=== PATIENT | female | born 1970 | race Caucasian/White ===

== ENCOUNTER → 2018-02-19 | Outpatient (CLI) | payer BC ==
[2018-02-19 16:53] LABS: Anisocytosis Slight; Hypochromasia Marked; MCH 18.5 pg (25.0-35.0); MCV 71.1 fL (80.0-100.0); Mean Platelet Volume 8.9; Microcytosis Marked; Platelet Count 259 k/uL (150-450); Poikilocytosis Slight; RBC 3.51 m/uL (3.80-5.40); RDW 17.9 % (11.5-15.5); WBC 8.6 k/uL (3.8-10.6)
[2018-02-19 17:35] LABS: HGB 6.5 gm/dL (11.4-16.0)
== END ==
LOC: LABWHC1 16:09
PROVIDERS: ATTEND Obstetrics & Gynecology
DX: D64.9 Anemia, unspecified (principal)
CPT/HCPCS: 36415; 85027

== ENCOUNTER 2018-02-20 14:51 | Emergency (ER) | payer BC ==
[2018-02-20 16:08] LABS: Anisocytosis Slight; Basophils # (A) 0.1 k/uL (0-0.2); Basophils % (A) 1 %; Eosinophils # (A) 0.2 k/uL (0-0.7); Eosinophils % (A) 2 %; HCT 25.9 % (34.0-46.0); Hypochromasia Marked; Lymphocytes # (A) 2.1 k/uL (1.0-4.8); Lymphocytes % (A) 27 %; MCH 18.1 pg (25.0-35.0); MCHC 26.1 g/dL (31.0-37.0); MCV 69.5 fL (80.0-100.0); Microcytosis Marked; Monocytes # (A) 0.4 k/uL (0-1.0); Monocytes % (A) 6 %; Neutrophils # (A) 4.8 k/uL (1.3-7.7); Neutrophils % (A) 62 %; Platelet Count 226 k/uL (150-450); Poikilocytosis Slight; RBC 3.72 m/uL (3.80-5.40); RDW 18.3 % (11.5-15.5); WBC 7.7 k/uL (3.8-10.6)
[2018-02-20 16:12] LABS: HGB 6.8 gm/dL (11.4-16.0)
[2018-02-20 16:17] LABS: ALT 45 U/L (9-52); AST 72 U/L (14-36); Alkaline Phosphatase 86 U/L (38-126); Anion Gap 10 mmol/L; Blood Urea Nitrogen 6 mg/dL (7-17); Carbon Dioxide 21 mmol/L (22-30); Chloride 108 mmol/L (98-107); Glucose 85 mg/dL (74-99); Potassium 4.1 mmol/L (3.5-5.1); Sodium 139 mmol/L (137-145); Total Bilirubin 0.3 mg/dL (0.2-1.3); Total Protein 6.6 g/dL (6.3-8.2)
[2018-02-20 16:24] LABS: Partial Thromboplastin Time 21.9 sec (22.0-30.0); Prothrombin Time 9.5 sec (9.0-12.0)
[2018-02-20 16:27] LABS: Creatine Kinase 48 U/L (30-135)
[2018-02-20 16:40] LABS: Creatine Kinase MB 0.5 ng/mL (0.0-2.4); Troponin I <0.012 ng/mL (0.000-0.034)
--- NOTE | 2018-02-20 16:45 | ED ---
General Adult HPI <Cisco Hitchcock - Last Filed: 02/20/18 18:05> - General Source: patient, RN notes reviewed Mode of arrival: ambulatory Limitations: no limitations <Alvaro Nava - Last Filed: 02/20/18 19:37> - General Chief complaint: Recheck/Abnormal Lab/Rx Stated complaint: needs blood transfusion Time Seen by Provider: 02/20/18 16:24 - History of Present Illness Initial comments: This is a 47-year-old female presents emergency Department chief complaint of low hemoglobin. Patient states she saw her [employer] yesterday because she's been having irregular periods which she's been ongoing and was given prescription for lab work. Patient was found to have a hemoglobin 6.5. Patient states that she does admit that she is very tired and fatigued. She states she can sleep all the time. Patient denies any chest pain, shortness breath headache or dizziness. Patient states that her last mental cycle was over on Sunday. She states this is one of her leg her periods normally she has very large clots and very heavy vaginal bleeding. Patient states that she has no melena rectal bleeding. Patient denies any history of anemia. (Alvaro Nava) - Related Data Home Medications Medication Instructions Recorded Confirmed DULoxetine HCL [Cymbalta] 60 mg PO HS 02/20/18 02/20/18 Fluticasone Nasal [place] [Flonase 2 spr EA NOSTRIL DAILY 02/20/18 02/20/18 Nasal [place]] Multivitamins, Thera [Multivitamin 1 tab PO DAILY 02/20/18 02/20/18 (formulary)] Norgestimate-Ethinyl Estradiol 1 tab PO HS 02/20/18 02/20/18 [Sprintec 28 Day Tablet] Topiramate [Topamax] 100 mg PO HS 02/20/18 02/20/18 clonazePAM [KlonoPIN] 2 mg PO HS 02/20/18 02/20/18 traZODone HCL [Desyrel] 100 mg PO HS 02/20/18 02/20/18 Allergies Allergy/AdvReac Type Severity Reaction Status Date / Time No Known Allergies Allergy Verified 02/20/18 15:13 Review of Systems ROS Other: All systems not noted in ROS Statement are negative. <Cisco Hitchcock - Last Filed: 02/20/18 18:05> ROS Other: All systems not noted in ROS Statement are negative. <Alvaro Nava - Last Filed: 02/20/18 19:37> ROS Statement: Those systems with pertinent positive or pertinent negative responses have been documented in the HPI. Past Medical History Additional Past Medical History / Comment(s): anemia History of Any Multi-Drug Resistant Organisms: None Reported Additional Past Surgical History / Comment(s): Lap band Past Psychological History: Depression Smoking Status: Never smoker Past Alcohol Use History: Occasional Past Drug Use History: None Reported <Alvaro Nava - Last Filed: 02/20/18 19:37> General Exam Limitations: no limitations General appearance: alert, in no apparent distress Head exam: Present: atraumatic, normocephalic, normal inspection Eye exam: Present: normal appearance, PERRL, EOMI, other (inner eyelids are pale ). Absent: scleral icterus, conjunctival injection, periorbital swelling ENT exam: Present: normal oropharynx Neck exam: Present: normal inspection. Absent: tenderness, meningismus, lymphadenopathy Respiratory exam: Present: normal lung sounds bilaterally. Absent: respiratory distress, wheezes, rales, rhonchi, stridor Cardiovascular Exam: Present: regular rate, normal rhythm, normal heart sounds. Absent: systolic murmur, diastolic murmur, rubs, gallop, clicks GI/Abdominal exam: Present: soft, normal bowel sounds. Absent: distended, tenderness, guarding, rebound, rigid Skin exam: Present: warm, dry, intact, normal color. Absent: rash <Alvaro Nava - Last Filed: 02/20/18 19:37> Vital Signs 02/20/18 02/20/18 15:13 19:12 Temperature 98.3 F Pulse Rate 87 85 Respiratory 18 18 Rate Blood Pressure 121/78 128/71 O2 Sat by Pulse 100 100 Oximetry Medical Decision Making - Lab Data Result diagrams: 02/20/18 15:56 02/20/18 15:56 <Cisco Hitchcock - Last Filed: 02/20/18 18:05> - Lab Data Result diagrams: 02/20/18 15:56 02/20/18 15:56 <Alvaro Nava - Last Filed: 02/20/18 19:37> - Medical Decision Making Patient reevaluated by myself, Dr. Hitchcock. Patient resting comfortably in bed. No discomfort with abdominal palpation. Patient states she has stopped her menses several days ago. Case was discussed in detail with Dr. Stewart who does recommend 1 unit of blood, ultrasound and follow-up in the next couple days with Dr. Harper. (Cisco Hitchcock) 47-year-old female presented for anemia. Patient's anemia is related to chronic blood loss from menstrual cycle. She is currently not bleeding at this time. Patient is advised to start [id number]-xuffumo iron supplement she will follow-up with her [employer]. She was given 1 unit of blood in the emergency department and discharge. Patient was updated on ultrasound results which shows large uterine fibroid. (Alvaro Nava) - Lab Data Lab Results 02/20/18 02/20/18 02/20/18 Range/Units 15:56 15:56 15:56 WBC 7.7 (3.8-10.6) k/uL RBC 3.72 L (3.80-5.40) m/uL Hgb 6.8 L* (11.4-16.0) gm/dL Hct 25.9 L (34.0-46.0) % MCV 69.5 L (80.0-100.0) fL MCH 18.1 L (25.0-35.0) pg MCHC 26.1 L (31.0-37.0) g/dL RDW 18.3 H (11.5-15.5) % Plt Count 226 (150-450) k/uL Neutrophils % 62 % Lymphocytes % 27 % Monocytes % 6 % Eosinophils % 2 % Basophils % 1 % Neutrophils # 4.8 (1.3-7.7) k/uL Lymphocytes # 2.1 (1.0-4.8) k/uL Monocytes # 0.4 (0-1.0) k/uL Eosinophils # 0.2 (0-0.7) k/uL Basophils # 0.1 (0-0.2) k/uL Hypochromasia Marked Poikilocytosis Slight Anisocytosis Slight Microcytosis Marked PT (9.0-12.0) sec INR (<1.2) APTT (22.0-30.0) sec Sodium 139 (137-145) mmol/L Potassium 4.1 (3.5-5.1) mmol/L Chloride 108 H (98-107) mmol/L Carbon Dioxide 21 L (22-30) mmol/L Anion Gap 10 mmol/L BUN 6 L (7-17) mg/dL Creatinine 0.60 (0.52-1.04) mg/dL Est GFR (CKD-EPI)AfAm >90 (>60 ml/min/1.73 sqM) Est GFR (CKD-EPI)NonAf >90 (>60 ml/min/1.73 sqM) Glucose 85 (74-99) mg/dL Calcium 9.0 (8.4-10.2) mg/dL Total Bilirubin 0.3 (0.2-1.3) mg/dL AST 72 H (14-36) U/L ALT 45 (9-52) U/L Alkaline Phosphatase 86 (38-126) U/L Total Creatine Kinase 48 (30-135) U/L CK-MB (CK-2) 0.5 (0.0-2.4) ng/mL CK-MB (CK-2) Rel Index 1.0 Troponin I <0.012 (0.000-0.034) ng/mL Total Protein 6.6 (6.3-8.2) g/dL Albumin 4.0 (3.5-5.0) g/dL Urine Color Urine Appearance (Clear) Urine pH (5.0-8.0) Ur Specific [place] (1.001-1.035) Urine Protein (Negative) Urine Glucose (UA) (Negative) Urine Ketones (Negative) Urine Blood (Negative) Urine Nitrite (Negative) Urine Bilirubin (Negative) Urine Urobilinogen (<2.0) mg/dL Ur Leukocyte Esterase (Negative) Urine HCG, Qual (Not Detectd) Blood Type Blood Type Recheck Antibody Screen Crossmatch Spec Expiration Date 02/20/18 02/20/18 02/20/18 Range/Units 15:56 17:11 17:43 WBC (3.8-10.6) k/uL RBC (3.80-5.40) m/uL Hgb (11.4-16.0) gm/dL Hct (34.0-46.0) % MCV (80.0-100.0) fL MCH (25.0-35.0) pg MCHC (31.0-37.0) g/dL RDW (11.5-15.5) % Plt Count (150-450) k/uL Neutrophils % % Lymphocytes % % Monocytes % % Eosinophils % % Basophils % % Neutrophils # (1.3-7.7) k/uL Lymphocytes # (1.0-4.8) k/uL Monocytes # (0-1.0) k/uL Eosinophils # (0-0.7) k/uL Basophils # (0-0.2) k/uL Hypochromasia Poikilocytosis Anisocytosis Microcytosis PT 9.5 (9.0-12.0) sec INR 1.0 (<1.2) APTT 21.9 L (22.0-30.0) sec Sodium (137-145) mmol/L Potassium (3.5-5.1) mmol/L Chloride (98-107) mmol/L Carbon Dioxide (22-30) mmol/L Anion Gap mmol/L BUN (7-17) mg/dL Creatinine (0.52-1.04) mg/dL Est GFR (CKD-EPI)AfAm (>60 ml/min/1.73 sqM) Est GFR (CKD-EPI)NonAf (>60 ml/min/1.73 sqM) Glucose (74-99) mg/dL Calcium (8.4-10.2) mg/dL Total Bilirubin (0.2-1.3) mg/dL AST (14-36) U/L ALT (9-52) U/L Alkaline Phosphatase (38-126) U/L Total Creatine Kinase (30-135) U/L CK-MB (CK-2) (0.0-2.4) ng/mL CK-MB (CK-2) Rel Index Troponin I (0.000-0.034) ng/mL Total Protein (6.3-8.2) g/dL Albumin (3.5-5.0) g/dL Urine Color Urine Appearance (Clear) Urine pH (5.0-8.0) Ur Specific [place] (1.001-1.035) Urine Protein (Negative) Urine Glucose (UA) (Negative) Urine Ketones (Negative) Urine Blood (Negative) Urine Nitrite (Negative) Urine Bilirubin (Negative) Urine Urobilinogen (<2.0) mg/dL Ur Leukocyte Esterase (Negative) Urine HCG, Qual Not Detected (Not Detectd) Blood Type O Positive Blood Type Recheck No Antibody Screen NEGATIVE Crossmatch See Detail Spec Expiration Date 02/23/2018 - 231002/20/18 Range/Units 17:43 WBC (3.8-10.6) k/uL RBC (3.80-5.40) m/uL Hgb (11.4-16.0) gm/dL Hct (34.0-46.0) % MCV (80.0-100.0) fL MCH (25.0-35.0) pg MCHC (31.0-37.0) g/dL RDW (11.5-15.5) % Plt Count (150-450) k/uL Neutrophils % % Lymphocytes % % Monocytes % % Eosinophils % % Basophils % % Neutrophils # (1.3-7.7) k/uL Lymphocytes # (1.0-4.8) k/uL Monocytes # (0-1.0) k/uL Eosinophils # (0-0.7) k/uL Basophils # (0-0.2) k/uL Hypochromasia Poikilocytosis Anisocytosis Microcytosis PT (9.0-12.0) sec INR (<1.2) APTT (22.0-30.0) sec Sodium (137-145) mmol/L Potassium (3.5-5.1) mmol/L Chloride (98-107) mmol/L Carbon Dioxide (22-30) mmol/L Anion Gap mmol/L BUN (7-17) mg/dL Creatinine (0.52-1.04) mg/dL Est GFR (CKD-EPI)AfAm (>60 ml/min/1.73 sqM) Est GFR (CKD-EPI)NonAf (>60 ml/min/1.73 sqM) Glucose (74-99) mg/dL Calcium (8.4-10.2) mg/dL Total Bilirubin (0.2-1.3) mg/dL AST (14-36) U/L ALT (9-52) U/L Alkaline Phosphatase (38-126) U/L Total Creatine Kinase (30-135) U/L CK-MB (CK-2) (0.0-2.4) ng/mL CK-MB (CK-2) Rel Index Troponin I (0.000-0.034) ng/mL Total Protein (6.3-8.2) g/dL Albumin (3.5-5.0) g/dL Urine Color Light Yellow Urine Appearance Clear (Clear) Urine pH 6.0 (5.0-8.0) Ur Specific [place] 1.009 (1.001-1.035) Urine Protein Negative (Negative) Urine Glucose (UA) Negative (Negative) Urine Ketones Negative (Negative) Urine Blood Negative (Negative) Urine Nitrite Negative (Negative) Urine Bilirubin Negative (Negative) Urine Urobilinogen <2.0 (<2.0) mg/dL Ur Leukocyte Esterase Negative (Negative) Urine HCG, Qual (Not Detectd) Blood Type Blood Type Recheck Antibody Screen Crossmatch Spec Expiration Date Disposition <Cisco Hitchcock - Last Filed: 02/20/18 18:05> Is patient prescribed a controlled substance at d/c from ED?: No Time of Disposition: 19:36 <Alvaro Nava - Last Filed: 02/20/18 19:37> Clinical Impression: Uterine fibroid, Anemia, Menorrhagia Disposition: HOME SELF-CARE Condition: Stable Instructions: Anemia (ED) Additional Instructions: Follow-up with your [employer]. Start iron supplement [id number] as directed. Please return to the Emergency Department if symptoms worsen or any other concerns. Referrals: None,Stated [Primary Care Provider] - 1-2 days Peyton Harper DO [Doctor of Osteopathic Medicine] - 1-2 days
[2018-02-20 17:56] LABS: Appearance,Urine Clear (Clear); Bilirubin,Urine Negative (Negative); Blood,Urine Negative (Negative); Color,Urine Light Yellow; Glucose,Urine (UA) Negative (Negative); Ketones,Urine Negative (Negative); Leukocyte Esterase,Urine Negative (Negative); Nitrite,Urine Negative (Negative); Protein,Urine Negative (Negative); Specific Gravity,Urine 1.009 (1.001-1.035); Urobilinogen,Urine <2.0 mg/dL (<2.0)
--- NOTE | 2018-02-20 19:23 | US ---
EXAMINATION TYPE: US transvaginal DATE OF EXAM: 02/20/2018 COMPARISON: NONE CLINICAL HISTORY: Pain. Pain TECHNIQUE: Transvaginal (TV). Date of LMP: 02/13/2018 EXAM MEASUREMENTS: Uterus: 10.4 x 8.2 x 7.6 cm 1. Uterus: Anteverted Hypoechoic area seen suggestive of fibroid measuring 6.3 x 5.6 x 5.9 cm. 2. Endometrium: Obscured by fibroid. 3. Right Ovary: Obscured by overlying bowel gas 4. Left Ovary: Obscured by overlying bowel gas 5. Bilateral Adnexa: wnl 6. Posterior cul-de-sac: wnl Hypoechoic area seen in uterus suggestive of fibroid measuring 6.3 x 5.6 x 5.9 cm. IMPRESSION: Endometrium appears to be obscured by a large submucosal uterine fibroid. No adnexal mass . No free fluid.
[2018-02-20 21:09] VITALS: TEMP 98.5
[2018-02-20 21:23] VITALS: BP 130/68; PULSE 89; RESP 19
== END 2018-02-20 21:28 | disposition home or self-care (01) ==
LOC: EC 14:51
DX: D64.9 Anemia, unspecified (principal); D25.9 Leiomyoma of uterus, unspecified; N92.0 Excessive and frequent menstruation with regular cycle; F32.9 Major depressive disorder, single episode, unspecified; Z79.51 Long term (current) use of inhaled steroids; Z79.899 Other long term (current) drug therapy
CPT/HCPCS: 36415; 86900; 86901; 80053; 82550; 82553; 84484; 85025; 85610; 85730; 86850; 86920; 81003; 81025; 76830; 99284; P9016

== ENCOUNTER 2018-03-29 06:00 | Day surgery (SDC) | payer BC ==
[2018-03-21 15:14] VITALS: BMI 32.9
--- NOTE | 2018-03-28 19:20 | P.HPOB ---
History of Present Illness H&P Date: 03/28/18 Chief Complaint: Menorrhagia with regular cycle, family planning This is a 48-year-old female 2 para 2 who presents for dilation and curettage with hysteroscopy and NovaSure endometrial ablation along with laparoscopic bilateral tubal ligation via fulguration. She has been experiencing heavy menses for over a year now. Periods are lasting anywhere from 4-7 days and some months are extremely heavy with cramping and bleeding through tampons and clothing. Her pelvic ultrasound showed a uterus measuring 10.4 x 8.2 x 7.6 cm with a fibroid measuring 6.3 x 5.6 x 5.9 cm. Neither ovary was visualized due to overlying bowel gas. She has been experiencing intermenstrual spotting and intermenstrual bleeding along with heavy menses and has been on control pills to try to control her bleeding but they have not helped so far. She is aware that her large submucosal fibroid could inhibit the NovaSure array from working but would like to attempt a NovaSure. Obstetrical history: . History of 2 vaginal deliveries. Gynecologic history: No history of sexual transmitted diseases. Social history: She is single and has been with the same partner for 5-1/2 years. Review of Systems Constitutional: Reports fatigue, Reports night sweats Eyes: denies blurred vision, denies pain Ears, nose, mouth and throat: Denies headache, Denies sore throat Cardiovascular: Denies chest pain, Denies shortness of breath Respiratory: Denies cough Gastrointestinal: Denies abdominal pain, Denies diarrhea, Denies nausea, Denies vomiting Genitourinary: Reports menorrhagia Menstruation: Reports menses 8 or > days, Reports menses variable, Reports period heavy Musculoskeletal: Reports myalgias Neurological: Reports headaches Psychiatric: Reports anxiety, Reports depression, Reports difficulty concentrating, Reports insomnia, Reports irritability Past Medical History Additional Past Medical History / Comment(s): Anemia X4-5 yrs due to heavy menstrual periods with clots. Recent blood transfusions -02/20/18 1 unit at [facility] , and 03/14/18 2 units at [facility]. Chronic neck pain. "Discs C2-[address] History of Any Multi-Drug Resistant Organisms: None Reported Past Surgical History: Bariatric Surgery, Breast Surgery Additional Past Surgical History / Comment(s): Lap band, needle biopsy right breast, lumpectomy left breast. Has had pain shots in neck, C2-4. Past Anesthesia/Blood Transfusion Reactions: No Reported Reaction Additional Past Anesthesia/Blood Transfusion Reaction / Comment(s): Has had 2 blood transfusions, no problems. Past Psychological History: Anxiety, Depression Smoking Status: Current some day smoker Past Alcohol Use History: Occasional Additional Past Alcohol Use History / Comment(s): Started smoking in College, smoked 2 packs per week, currently smokes 1 cigarette per week. Drinks approximately 7 drinks per week. Past Drug Use History: None Reported - Past Family History Mother Family Medical History: No Reported History Medications and Allergies Home Medications Medication Instructions Recorded Confirmed Type DULoxetine HCL [Cymbalta] 60 mg PO HS 02/20/18 03/21/18 History Fluticasone Nasal [place] [Flonase 2 spr EA NOSTRIL DAILY 02/20/18 03/21/18 History Nasal [place]] Norgestimate-Ethinyl Estradiol 1 tab PO HS 02/20/18 03/21/18 History [Sprintec 28 Day Tablet] Topiramate [Topamax] 100 mg PO HS 02/20/18 03/21/18 History clonazePAM [KlonoPIN] 2 mg PO HS 02/20/18 03/21/18 History Pedi Multivit No.25/Folic Acid 1 tab PO HS 03/21/18 03/21/18 History [Flintstones Multivit Chew Tab] traMADol HCL [Ultram] 50 mg PO HS 03/21/18 03/21/18 History traZODone HCL 50 mg PO HS 03/21/18 03/21/18 History Allergies Allergy/AdvReac Type Severity Reaction Status Date / Time No Known Allergies Allergy Verified 03/21/18 14:50 Exam Osteopathic Statement: *. No significant issues noted on an osteopathic structural exam other than those noted in the History and Physical/Consult. HEENT: Within normal limits Heart: Regular rate and rhythm Lungs: Clear to auscultation bilaterally Abdomen: Soft, nontender Pelvic exam: Uterus is small, anteverted, with no adnexal masses or tenderness noted. Scant bloody discharge was noted. Extremities: Negative Homans Assessment and Plan (1) Menorrhagia with regular cycle Status: Acute Code(s): N92.0 - EXCESSIVE AND FREQUENT MENSTRUATION WITH REGULAR CYCLE SNOMED Code(s): 886803016 (2) Anemia Status: Acute Code(s): D64.9 - ANEMIA, UNSPECIFIED SNOMED Code(s): 609387892 Plan: Proceed with dilation and curettage with hysteroscopy and NovaSure endometrial ablation with laparoscopic bilateral tubal ligation via fulguration. I have discussed the risks, benefits, and alternative therapies for the above- mentioned procedure and for both sedation/anesthesia as well as necessary blood products administration, if indicated, as they pertain to this patient. The patient has indicated her understanding and acceptance of the risks and procedures discussed.
[~2018-03-29 06:00] MED LIST: DEXAMETHASONE SOD PHOSPHATE 10 MG/ML 1 ML VIAL IV ONE; HYDROmorphone 0.5 MG/0.5 ML SYRINGE IVP PRN; LACTATED RINGERS 1,000 ML IV SCH; LIDOCAINE 1% 20 ML VIAL (10MG/ML) FOR IV START INTRADERMA PRN; ONDANSETRON 4 MG/2 ML VIAL IVP ONE; Pre Op ABX Message 1 EACH MISC MISCELLANE ONE; SCOPOLAMINE 1.5MG/72HR PATCH TRANSDERM ONE
[2018-03-29 06:47] LABS: Anisocytosis Moderate; Basophils # (A) 0.1 k/uL (0-0.2); Basophils % (A) 1 %; Eosinophils # (A) 0.2 k/uL (0-0.7); Eosinophils % (A) 2 %; HCT 35.5 % (34.0-46.0); Hypochromasia Marked; Lymphocytes # (A) 2.8 k/uL (1.0-4.8); Lymphocytes % (A) 30 %; MCH 24.5 pg (25.0-35.0); MCHC 29.5 g/dL (31.0-37.0); MCV 82.8 fL (80.0-100.0); Mean Platelet Volume 7.4; Microcytosis Slight; Monocytes # (A) 0.6 k/uL (0-1.0); Monocytes % (A) 6 %; Neutrophils # (A) 5.6 k/uL (1.3-7.7); Neutrophils % (A) 60 %; Platelet Count 351 k/uL (150-450); Poikilocytosis Slight; RBC 4.29 m/uL (3.80-5.40); RDW 21.9 % (11.5-15.5); WBC 9.4 k/uL (3.8-10.6)
[2018-03-29 06:52] LABS: HGB 10.5 gm/dL (11.4-16.0)
[2018-03-29] MEDS ORDERED: HYDROmorphone (PF) 1 MG/ML ONE (07:35)
[2018-03-29] MEDS ORDERED: MORPHINE SULFATE 10 MG/ML SYRINGE ONE (07:35)
[2018-03-29] MEDS ORDERED: KETOROLAC 30 MG/ML 1 ML VIAL ONE (07:35)
[2018-03-29] MEDS ORDERED: NEOSTIGMINE 1 MG/ML 10 ML VIAL ONE (07:35)
[2018-03-29] MEDS ORDERED: fentaNYL (PF) 50 MCG/ML 2 ML AMP ONE (07:35)
[2018-03-29] MEDS ORDERED: ROCURONIUM BROMIDE 10 MG/ML 10 ML VIAL IV ONE (07:35)
[2018-03-29] MEDS ORDERED: PROPOFOL 10 MG/ML 20 ML VIAL IV ONE (07:35)
[2018-03-29] MEDS ORDERED: MIDAZOLAM 2 MG/2 ML VIAL ONE (07:35)
[2018-03-29] MEDS ORDERED: SUCCINYLCHOLINE CHLORIDE 100 MG/5 ML SYR IV ONE (07:35)
[2018-03-29] MEDS ORDERED: GLYCOPYRROLATE 0.2 MG/ML 2 ML VIAL ONE (07:35)
[2018-03-29] MEDS ORDERED: ONDANSETRON 4 MG/2 ML VIAL ONE (07:35)
[2018-03-29] MEDS ORDERED: LIDOCAINE 1% INJ 10MG/ML (20 ML MDV) ONE (07:35)
[2018-03-29] MEDS ORDERED: ROPIVACAINE 5 MG/ML 30 ML VIAL MISCELLANE ONE ×2 (08:13)
--- NOTE | 2018-03-29 08:32 | P.OP ---
Date of Procedure: 03/29/18 Preoperative Diagnosis: Menorrhagia with regular cycle Family planning Postoperative Diagnosis: Same Procedure(s) Performed: Dilation and curettage with hysteroscopy and attempted and failed NovaSure endometrial ablation Laparoscopic bilateral tubal ligation via fulguration Anesthesia: MARK Surgeon: Peyton Harper Estimated Blood Loss (ml): 10 Pathology: other (Endometrial curettings) Condition: stable Disposition: same day Indications for Procedure: This is a 48-year-old female 2 para 2 who presents for dilation and curettage with hysteroscopy and NovaSure endometrial ablation along with laparoscopic bilateral tubal ligation via fulguration. She has been experiencing heavy menses for over a year now. Periods are lasting anywhere from 4-7 days and some months are extremely heavy with cramping and bleeding through tampons and clothing. Her pelvic ultrasound showed a uterus measuring 10.4 x 8.2 x 7.6 cm with a fibroid measuring 6.3 x 5.6 x 5.9 cm. Neither ovary was visualized due to overlying bowel gas. She has been experiencing intermenstrual spotting and intermenstrual bleeding along with heavy menses and has been on control pills to try to control her bleeding but they have not helped so far. She is aware that her large submucosal fibroid could inhibit the NovaSure array from working but would like to attempt a NovaSure. Operative Findings: Uterus is bulky and anteverted. Cervix is sounded to 4 cm and uterus is sounded to 11 cm. Upon hysteroscopy, visualization was very difficult secondary to what appears to be a large submucosal fibroid visualized. A large amount of endometrial curettings are obtained. Endometrial ablation was unable to be performed due to unable to pass cavity assessment. Normal tubes and ovaries are noted. Uterus is noted to be enlarged with probable fibroids. Description of Procedure: The patient is taken to the operating room. She is placed in the dorsal lithotomy position after general anesthesia was given. She is prepped and draped in the normal sterile fashion. Bladder is drained with a catheter and then removed. Pelvic exam is performed under anesthesia. Uterus is found to be anteverted with no adnexal masses. She is placed in slight Trendelenburg position. A right angle retractor is used to visualize the cervix. The anterior lip of the cervix is grasped with a single-tooth tenaculum. Cervix is sounded to 4 cm. Uterus is sounded to 11 cm. Cervix is gently dilated with Vidal dilators until a hysteroscope could be passed. Hysteroscopy is performed using normal saline. The above noted findings are noted. Next a polyp forceps is introduced. A large amount of tissue was obtained. Next medium-sized size sharp curette was placed. A large amount of endometrial curettings were obtained. Next NovaSure array was inserted into the endometrial cavity. Length was set at 6.5 cm and width was determined to be 4.6 cm. Next cavity assessment was attempted and failed after 3 attempts. Each time the array was removed and replaced. At this point the procedure was abandoned. The NovaSure array was removed inspected and discarded. A kroner uterine manipulator is then inserted through the cervix and the balloon is inflated. Single-tooth tenaculum was removed from the anterior lip of the cervix. Minimal bleeding was noted. All other instruments removed from the vagina. Attention is then turned to the abdomen. Gloves are changed. The infraumbilical fold was grasped in transverse fashion with 2 Allis clamps. A small transverse incision was made with a scalpel. A hemostat was used to carry the incision down to the underlying layer of fascia. A towel clip was placed above the umbilicus for retraction. A 11 mm disposable bladeless trocar was then inserted into the peritoneal cavity under direct visualization. Once inside, pneumoperitoneum was achieved with CO2 gas. The insert was removed and the camera was placed. Intraperitoneal placement was confirmed. No bleeding was noted. Next the patient was placed in Trendelenburg position. A small stab incision was made suprapubically and a 5 mm disposable bladeless trocar was inserted into the peritoneal cavity under direct visualization. Once inside pelvic contents were inspected. Uterus was noted be large and bulky. Next a bipolar Kleppinger instrument was placed through the inferior trocar and the midportion of each tube was brought away from other structures and completely fulgurated on approximate 2-3 cm segment of each tube. Excellent hemostasis was noted. Pictures were taken. Pneumoperitoneum was released after the inferior trocar was removed under direct visualization. The upper trocar was then removed. The fascial incision was closed with 0 Vicryl suture in interrupted [id number] stitch. The skin incisions were then closed with 4-0 Vicryl suture in a subcuticular fashion. Incision sites then were injected with half percent Marcaine. Approximately 7 mL were used. Next the kroner uterine manipulator was removed. Minimal bleeding was noted. All sponge and needle counts are correct. The patient is then taken to recovery room in stable condition.
[2018-03-29 08:48] VITALS: TEMP 97
[2018-03-29] MEDS ORDERED: LACTATED RINGERS 1,000 ML IV ONE (09:36)
[2018-03-29 09:59] VITALS: RESP 16
[2018-03-29 11:11] VITALS: BP 118/78; PULSE 68
== END 2018-03-29 11:25 | disposition home or self-care (01) ==
LOC: OR 06:00
PROVIDERS: ATTEND Obstetrics & Gynecology
DX: Z30.2 Encounter for sterilization (principal); D25.0 Submucous leiomyoma of uterus; D64.9 Anemia, unspecified; G89.29 Other chronic pain; M54.2 Cervicalgia; Z98.84 Bariatric surgery status; F41.9 Anxiety disorder, unspecified; F32.9 Major depressive disorder, single episode, unspecified; F17.210 Nicotine dependence, cigarettes, uncomplicated; Z79.3 Long term (current) use of hormonal contraceptives; Z79.891 Long term (current) use of opiate analgesic; Z79.51 Long term (current) use of inhaled steroids; Z79.899 Other long term (current) drug therapy
CPT/HCPCS: 81025; 88305; 85025; 58563; 58670; J2250; J1100; J2710; J2270; J2405; J2001; J3010; J1885; J1170 ×2; J2795; J0330; J2704

== ENCOUNTER → 2018-05-01 | Outpatient (CLI) | payer BC ==
[2018-05-01 16:01] LABS: Anion Gap 8 mmol/L; Blood Urea Nitrogen 9 mg/dL (7-17); Calcium 8.9 mg/dL (8.4-10.2); Carbon Dioxide 23 mmol/L (22-30); Chloride 109 mmol/L (98-107); Glucose 104 mg/dL (74-99); Potassium 3.7 mmol/L (3.5-5.1); Sodium 140 mmol/L (137-145)
[2018-05-01 16:35] LABS: Anisocytosis Slight; Basophils # (A) 0.1 k/uL (0-0.2); Basophils % (A) 1 %; Eosinophils # (A) 0.2 k/uL (0-0.7); Eosinophils % (A) 2 %; HCT 34.2 % (34.0-46.0); HGB 10.2 gm/dL (11.4-16.0); Hypochromasia Marked; Lymphocytes # (A) 1.9 k/uL (1.0-4.8); Lymphocytes % (A) 24 %; MCH 25.6 pg (25.0-35.0); MCHC 29.8 g/dL (31.0-37.0); MCV 85.9 fL (80.0-100.0); Mean Platelet Volume 8.5; Microcytosis Slight; Monocytes # (A) 0.4 k/uL (0-1.0); Monocytes % (A) 5 %; Neutrophils # (A) 5.3 k/uL (1.3-7.7); Neutrophils % (A) 67 %; Platelet Count 358 k/uL (150-450); RBC 3.98 m/uL (3.80-5.40); RDW 18.4 % (11.5-15.5)
== END | disposition home or self-care (01) ==
LOC: LABWHC1 15:25
PROVIDERS: ATTEND Obstetrics & Gynecology
DX: Z01.812 Encounter for preprocedural laboratory examination (principal)
CPT/HCPCS: 36415; 80048; 85025

== ENCOUNTER 2018-05-09 05:51 | Observation (INO) | payer BC ==
[2018-05-06 12:06] VITALS: BMI 32.8
--- NOTE | 2018-05-08 13:02 | P.HPOB ---
History of Present Illness H&P Date: 05/08/18 Chief Complaint: Menorrhagia 48 year old presents for Total laparoscopic hysterectomy with da lennie and diagnostic cystoscopy for menorrhagia. Review of Systems All systems: negative Constitutional: Denies chills, Denies fever Eyes: denies blurred vision, denies pain Ears, nose, mouth and throat: Denies headache, Denies sore throat Cardiovascular: Denies chest pain, Denies shortness of breath Respiratory: Denies cough Gastrointestinal: Denies abdominal pain, Denies diarrhea, Denies nausea, Denies vomiting Genitourinary: Denies dysuria, Denies hematuria Musculoskeletal: Denies myalgias Integumentary: Denies pruritus, Denies rash Neurological: Denies numbness, Denies weakness Psychiatric: Denies anxiety, Denies depression Endocrine: Denies fatigue, Denies weight change Past Medical History Additional Past Medical History / Comment(s): Anemia X4-5 yrs due to heavy menstrual periods with clots. Recent blood transfusions -02/20/18 1 unit at [facility] , and 03/14/18 2 units at [facility]. Chronic neck pain. "Discs C2-[address] History of Any Multi-Drug Resistant Organisms: None Reported Past Surgical History: Bariatric Surgery, Breast Surgery, Tubal Ligation Additional Past Surgical History / Comment(s): Lap band, needle biopsy right breast, lumpectomy left breast. Has had pain shots in neck, C2-4. D & C, FAILED UTERINE ABLATION-03/29/18 Past Anesthesia/Blood Transfusion Reactions: No Reported Reaction Additional Past Anesthesia/Blood Transfusion Reaction / Comment(s): Has had 2 blood transfusions, no problems. Past Psychological History: Anxiety, Depression Smoking Status: Current every day smoker Past Alcohol Use History: None Reported Past Drug Use History: None Reported - Past Family History Mother Family Medical History: No Reported History Medications and Allergies Home Medications Medication Instructions Recorded Confirmed Type DULoxetine HCL [Cymbalta] 60 mg PO HS 02/20/18 05/06/18 History Fluticasone Nasal [place] [Flonase 2 spr EA NOSTRIL DAILY 02/20/18 05/06/18 History Nasal [place]] Topiramate [Topamax] 100 mg PO HS 02/20/18 05/06/18 History clonazePAM [KlonoPIN] 2 mg PO HS 02/20/18 05/06/18 History Pedi Multivit No.25/Folic Acid 1 tab PO HS 03/21/18 05/06/18 History [Flintstones Multivit Chew Tab] traMADol HCL [Ultram] 50 mg PO HS 03/21/18 05/06/18 History traZODone HCL 50 mg PO HS 03/21/18 05/06/18 History HYDROcodone/APAP 5-325MG [[place] 1 tab PO Q4HR PRN 3 Days #18 tab 03/29/18 Rx 5-325] Allergies Allergy/AdvReac Type Severity Reaction Status Date / Time No Known Allergies Allergy Verified 05/06/18 11:58 Exam Osteopathic Statement: *. No significant issues noted on an osteopathic structural exam other than those noted in the History and Physical/Consult. Heart: RRR Lungs: CTAB Abdomen: soft, nontender Extremeties: neg fern's Assessment and Plan (1) Menorrhagia with irregular cycle Status: Acute Code(s): N92.1 - EXCESSIVE AND FREQUENT MENSTRUATION WITH IRREGULAR CYCLE SNOMED Code(s): 603579094 Plan: 1. total laparoscopic hysterectomy with da vinici and diagnostic cystoscopy
[~2018-05-09 05:51] MED LIST changes: -DEXAMETHASONE SOD PHOSPHATE 10 MG/ML 1 ML VIAL IV ONE; -HYDROmorphone 0.5 MG/0.5 ML SYRINGE IVP PRN; -LACTATED RINGERS 1,000 ML IV SCH; -LIDOCAINE 1% 20 ML VIAL (10MG/ML) FOR IV START INTRADERMA PRN; -ONDANSETRON 4 MG/2 ML VIAL IVP ONE; -Pre Op ABX Message 1 EACH MISC MISCELLANE ONE; -SCOPOLAMINE 1.5MG/72HR PATCH TRANSDERM ONE; +ceFAZolin IN SWFI 2 GM/20 ML SYRINGE IVP ONE
[2018-05-09] MEDS ORDERED: ONDANSETRON 4 MG/2 ML VIAL IVP ONE (05:53)
[2018-05-09] MEDS ORDERED: HYDROmorphone 0.5 MG/0.5 ML SYRINGE IVP PRN (05:53)
[2018-05-09] MEDS ORDERED: DEXAMETHASONE SOD PHOSPHATE 10 MG/ML 1 ML VIAL IV ONE (05:53)
[2018-05-09] MEDS: LACTATED RINGERS 1,000 ML IV SCH ×2 (06:50→15:44)
[2018-05-09] MEDS ORDERED: LIDOCAINE 1% 20 ML VIAL (10MG/ML) FOR IV START INTRADERMA ONE (06:51)
[2018-05-09] MEDS ORDERED: ROPIVACAINE 5 MG/ML 30 ML VIAL MISCELLANE ONE (07:01)
[2018-05-09] MEDS ORDERED: fentaNYL (PF) 50 MCG/ML 2 ML AMP ONE (09:48)
[2018-05-09] MEDS ORDERED: NEOSTIGMINE 1 MG/ML 10 ML VIAL ONE (09:48)
[2018-05-09] MEDS ORDERED: GLYCOPYRROLATE 0.2 MG/ML 2 ML VIAL ONE (09:48)
[2018-05-09] MEDS ORDERED: LIDOCAINE 1% INJ 10MG/ML (20 ML MDV) ONE (09:48)
[2018-05-09] MEDS ORDERED: MIDAZOLAM 2 MG/2 ML VIAL ONE (09:48)
[2018-05-09] MEDS ORDERED: KETOROLAC 30 MG/ML 1 ML VIAL ONE (09:48)
[2018-05-09] MEDS ORDERED: PROPOFOL 10 MG/ML 20 ML VIAL IV ONE (09:48)
[2018-05-09] MEDS ORDERED: HYDROmorphone (PF) 1 MG/ML ONE (09:48)
[2018-05-09] MEDS ORDERED: ROCURONIUM BROMIDE 10 MG/ML 10 ML VIAL IV ONE (09:48)
[2018-05-09] MEDS ORDERED: diphenhydrAMINE 50 MG/ML 1 ML VIAL IVP ONE (10:04)
[2018-05-09] MEDS ORDERED: SIMETHICONE 80 MG CHEWABLE PO PRN (11:38)
[2018-05-09] MEDS ORDERED: HYDROcodone/APAP 5-325MG 1 EACH TAB PO PRN (11:38)
[2018-05-09] MEDS ORDERED: ZOLPIDEM 5 MG TAB PO PRN (11:38)
[2018-05-09] MEDS ORDERED: IBUPROFEN 600 MG TAB PO PRN (11:38)
[2018-05-09] MEDS ORDERED: ONDANSETRON 4 MG/2 ML VIAL IVP PRN (11:38)
--- NOTE | 2018-05-09 13:21 | P.OP ---
Date of Procedure: 05/09/18 Preoperative Diagnosis: 1. Menorrhagia Postoperative Diagnosis: 1. Menorrhagia Procedure(s) Performed: Total Laporoscopic Hysterectomy with da malika, diagnostic cystoscopy Anesthesia: MARK Surgeon: Esthela Hermosillo Wireless Team Member #1: Adrián Latif Estimated Blood Loss (ml): 100 IV fluids (ml): 1,000 Urine output (ml): 150 Pathology: other (uterus, cervix in pieces) Condition: stable Disposition: PACU Operative Findings: enlarged uterus Description of Procedure: Patient taken the operating room where general anesthesia was obtained without difficulty. She is prepped and draped in normal sterile fashion dorsal lithotomy position, legs placed in the Bacilio stirrups. Weighted speculum placed in the vagina and the anterior lip the cervix was grasped with single- tooth tenaculum. The uterus sounded to 12 cm and the cervix diameter was 3 cm. The appropriate manipulator tip and ring were placed on the Catalina manipulator. The Catalina manipulator was then placed in the uterus. Schultz catheter was also placed. Attention was then turned to the abdomen and gloves were changed. A 5 mm supraumbilical incision was made the scalpel and a 5 mm optical trocar was placed under direct visualization. 10 cm to the right of this and 2 cm down a 5 mm incision was made and 8 mm da Malika port was placed under direct visualization. Same measurements on the opposite side of the patient's abdomen , the 5 mm incision was made and 8 mm da Malika port was placed under direct visualization. In the left upper quadrant a 10 mm incision was made and a 10 mm optical trocar was placed under direct visualization. The 5 mm optical trocar was then replaced with the 8 mm da Malika camera port. The robot was docked on patient's right side. The camera was introduced and then the monopolar curved scissor and [place] bipolar placed under direct visualization. I broke scrub and went to the physician console. The left utero -ovarian ligament was cauterized with the [place] bipolar and cut with monopolar curved scissors. The left round ligament was cauterized with the [place] bipolar and cut with monopolar curved scissors. The posterior leaf of the broad ligament was taken down using the monopolar curved scissors. Anterior leaf of the broad ligament was then taken down using the monopolar curved scissors. The uterine artery was cauterized with the [place] bipolar and cut with monopolar curved scissors. The bladder flap was then started using the monopolar curved scissors. Attention was then turned to the right side of the patient's anatomy and the right utero-ovarian ligament was cauterized with the [place] bipolar and cut with monopolar curved scissors. The right round ligament was cauterized with the [place] bipolar and cut with monopolar curved scissors. Posterior leaf of the broad ligament was taken down using the monopolar curved scissors and the anterior leaf was taken down using the monopolar curved scissors. The uterine artery was cauterized the [place] bipolar cut with monopolar curved scissors. The bladder flap was then finished on this side. Anterior colpotomy was made using the monopolar curved scissors. The rest of the uterus was from the vaginal cuff by following the ring around with the monopolar curved scissors through the uterosacral ligaments back to the anterior portion. At this time was noted that some of the cervix had slipped out of the cup of the manipulator so was left behind while I was cutting with the monopolar curved scissors. Once the uterus and cervix were amputated they were placed in an Darell contained extraction bag and pulled through the vaginal cuff. Hemostasis was assured. The instruments were changed for the Cardier forcep and the colten suture cut. The vaginal cuff was then closed using O stratafix barbed suture in a running fashion. Hemostasis was again assured and the pelvis was irrigated. All instruments were removed from the abdomen and the robot was undocked. I scrubbed back in to perform a cystoscopy. There were jets from both ureteral orifices. The abdominal incisions were closed with 4-0 Vicryl in a subcuticular fashion. Patient tolerated the procedure well, sponge and instrument counts correct 2 and she was taken to recovery room in stable condition condition
[2018-05-09] MEDS: HYDROcodone/APAP 5-325MG 1 EACH TAB PO PRN ×2 (14:58→21:07)
[2018-05-09] MEDS: KETOROLAC 30 MG/ML 1 ML VIAL IVP PRN ×2 (15:18→21:10)
[2018-05-09] MEDS ORDERED: clonazePAM 1 MG TAB PO SCH (21:00)
[2018-05-09] MEDS ORDERED: MULTIVITAMINS, PEDIATRIC 1 EACH CHEWABLE PO SCH (21:00)
[2018-05-09] MEDS ORDERED: traZODone HCL 50 MG TAB PO SCH (21:00)
[2018-05-09] MEDS ORDERED: DULoxetine HCL 60 MG CAPSULE.DR PO SCH (21:00)
[2018-05-09] MEDS ORDERED: TOPIRAMATE 100 MG TAB PO SCH (21:00)
[2018-05-09] MEDS: SENNOSIDES-DOCUSATE SODIUM 1 EACH TAB PO SCH (21:09)
[2018-05-10] MEDS: HYDROcodone/APAP 5-325MG 1 EACH TAB PO PRN ×2 (02:58→08:46)
[2018-05-10] MEDS: KETOROLAC 30 MG/ML 1 ML VIAL IVP PRN ×2 (02:58→08:47)
[2018-05-10 06:47] LABS: Anisocytosis Slight; Basophils # (A) 0.1 k/uL (0-0.2); Basophils % (A) 1 %; Eosinophils # (A) 0.1 k/uL (0-0.7); Eosinophils % (A) 1 %; HCT 33.1 % (34.0-46.0); HGB 9.6 gm/dL (11.4-16.0); Hypochromasia Marked; Lymphocytes # (A) 2.8 k/uL (1.0-4.8); Lymphocytes % (A) 32 %; MCH 26.1 pg (25.0-35.0); Mean Platelet Volume 8.2; Monocytes # (A) 0.6 k/uL (0-1.0); Monocytes % (A) 6 %; Neutrophils # (A) 5.1 k/uL (1.3-7.7); Neutrophils % (A) 58 %; Platelet Count 215 k/uL (150-450); RBC 3.68 m/uL (3.80-5.40); RDW 17.9 % (11.5-15.5); WBC 8.8 k/uL (3.8-10.6)
[2018-05-10 08:30] VITALS: BP 117/76; PULSE 93; RESP 20; TEMP 97.9
--- NOTE | 2018-05-10 08:41 | P.DS ---
Providers Date of admission: 05/09/18 22:10 Expected date of discharge: 05/10/18 Attending physician: Esthela Hermosillo Primary care physician: Manan Moe - Discharge Diagnosis(es) (1) Menorrhagia with irregular cycle Current Visit: No Status: Acute Hospital Course: Patient presented for total laparoscopic hysterectomy. She did undergo this procedure without complication. Her postoperative course was uneventful. She is tolerating regular diet, ambulating and voiding without difficulty. Her pain is well-controlled. She'll be discharged home postoperative day #1 in stable condition to follow-up with me in 2 weeks. Plan - Discharge Summary Discharge Rx Participant: Yes New Discharge Prescriptions: New HYDROcodone/APAP 5-325MG [[place] 5-325] 1 - 2 each PO Q6HR PRN #30 tab PRN Reason: Pain Ibuprofen [Motrin] 600 mg PO Q6HR PRN #30 tab PRN Reason: Mild Discomfort No Action clonazePAM [KlonoPIN] 2 mg PO HS Topiramate [Topamax] 100 mg PO HS Fluticasone Nasal [place] [Flonase Nasal [place]] 2 spr EA NOSTRIL DAILY DULoxetine HCL [Cymbalta] 60 mg PO HS Pedi Multivit No.25/Folic Acid [Flintstones Multivit Chew Tab] 300 mcg PO HS traZODone HCL 50 mg PO HS traMADol HCL [Ultram] 50 mg PO HS HYDROcodone/APAP 5-325MG [[place] 5-325] 1 tab PO Q4HR PRN 3 Days #18 tab PRN Reason: Moderate To Severe Pain Discharge Medication List DULoxetine HCL [Cymbalta] 60 mg PO HS 02/20/18 [History] Fluticasone Nasal [place] [Flonase Nasal [place]] 2 spr EA NOSTRIL DAILY 02/20/18 [ History] Topiramate [Topamax] 100 mg PO HS 02/20/18 [History] clonazePAM [KlonoPIN] 2 mg PO HS 02/20/18 [History] Pedi Multivit No.25/Folic Acid [[place] Multivit Chew Tab] 300 mcg PO HS 04/30 [History] traMADol HCL [Ultram] 50 mg PO HS 03/21/18 [History] traZODone HCL 50 mg PO HS 03/21/18 [History] HYDROcodone/APAP 5-325MG [[place] 5-325] 1 tab PO Q4HR PRN 3 Days #18 tab [Rx] HYDROcodone/APAP 5-325MG [[place] 5-325] 1 - 2 each PO Q6HR PRN #30 tab 05/10/18 [ Rx] Ibuprofen [Motrin] 600 mg PO Q6HR PRN #30 tab 05/10/18 [Rx] Follow up Appointment(s)/Referral(s): Esthela Hermosillo DO [Doctor of Osteopathic Medicine] - 05/21/18 Discharge Disposition: HOME SELF-CARE
[2018-05-10] MEDS: SENNOSIDES-DOCUSATE SODIUM 1 EACH TAB PO SCH (08:46)
[2018-05-10] MEDS ORDERED: FLUTICASONE 50MCG/SPRAY NASAL 16GM EA NOSTRIL SCH (09:00)
== END 2018-05-10 11:00 | disposition home or self-care (01) ==
LOC: OR 05:51 → 6PED 09:34 → OR 22:10 → 6PED 22:10
PROVIDERS: ADMIT Obstetrics & Gynecology; ATTEND Obstetrics & Gynecology
DX: N92.1 Excessive and frequent menstruation with irregular cycle (principal); N80.0 Endometriosis of uterus; D25.9 Leiomyoma of uterus, unspecified; D64.9 Anemia, unspecified; M54.2 Cervicalgia; G89.29 Other chronic pain; F41.9 Anxiety disorder, unspecified; F32.9 Major depressive disorder, single episode, unspecified; F17.200 Nicotine dependence, unspecified, uncomplicated; Z79.891 Long term (current) use of opiate analgesic; Z79.51 Long term (current) use of inhaled steroids; Z79.899 Other long term (current) drug therapy; Z98.84 Bariatric surgery status
CPT/HCPCS: 58553; S2900; 81025; 85025; 86850; 86900; 86901; 88307